=== PATIENT | female | born 1965 | race Caucasian/White ===

== ENCOUNTER 2020-03-18 05:58 | Inpatient (IN) | payer OTHER ==
[~2020-03-18 05:58] MED LIST: Lactated Ringers 1,000 ML IV SCH; Lidocaine 1%/Sod Bicarbonate in NS 8.4% 1 ML Syringe IDERM PRN; Sodium Chloride 0.9% 10 ML Syringe FLUSH PRN
[2020-03-18] MEDS ORDERED: oxyCODONE ER 10 MG TAB.ER PO SCH (06:00)
[2020-03-18] MEDS ORDERED: Acetaminophen 325 MG Tab PO SCH (06:00)
[2020-03-18] MEDS ORDERED: Pregabalin 25 MG Cap PO SCH (06:00)
[2020-03-18] MEDS ORDERED: Cyclobenzaprine 10 MG Tab PO PRN (06:32)
[2020-03-18] MEDS ORDERED: Bisacodyl 5 MG Tab PO PRN (06:33)
[2020-03-18] MEDS ORDERED: Sennosides 8.6 MG Tab PO PRN (06:33)
[2020-03-18] MEDS ORDERED: Magnesium Hydroxide 400 MG/5 ML Susp 30 ML Cup PO PRN (06:33)
[2020-03-18] MEDS ORDERED: Ondansetron 4 MG/2 ML SDV IVPUSH PRN (06:33)
[2020-03-18] MEDS ORDERED: Naloxone 0.4 MG/ML SDV IVPUSH PRN (06:33)
[2020-03-18] MEDS ORDERED: Scopolamine 1.5 MG Transdermal Patch TOP PRN (06:53)
--- NOTE | 2020-03-18 07:11 | PCM.PREANE ---
Preanesthetic Assessment - Anesthesia/Transfusion/Family Hx Anesthesia History: Prior Anesthesia Reaction Transfusion History: No Prior Transfusion(s) - Review of Systems General: No Symptoms Pulmonary: No Symptoms Cardiovascular: No Symptoms Gastrointestinal: No Symptoms Neurological: No Symptoms Other: Reports: Diabetes - Physical Assessment NPO Status Date: 03/17/20 NPO Status Time: 21:00 Vital Signs: Last Vital Signs Temp 97.0 F 03/18/20 06:00 Pulse 91 03/18/20 06:00 Resp 16 03/18/20 06:00 BP 126/49 L 03/18/20 06:00 Pulse Ox 97 03/18/20 06:00 Height: 1.63 m Weight: 126.099 kg ASA Class: 3 Mental Status: Alert & Oriented x3 Airway Class: Mallampati = 4 Dentition: Reports: [place](s), Missing Tooth/Teeth Thyro-Mental Finger Breadths: 3 Mouth Opening Finger Breadths: 3 ROM/Head Extension: Limited/Partial (short neck, large neck circumference and bull hump) Lungs: Clear to Auscultation, Normal Respiratory Effort Cardiovascular: Regular Rate, Regular Rhythm - Lab Values: Laboratory Last Values POC Glucose 96 mg/dL (70-105) 03/18/20 06:31 MRSA (PCR) Negative 03/06/20 17:08 - Allergies Allergies/Adverse Reactions: Allergies Allergy/AdvReac Type Severity Reaction Status Date / Time cephalexin monohydrate Allergy Severe Hot Verified 03/17/20 07:15 [From Keflex] burning red rash amoxicillin [Amoxicillin] Allergy Intermediate Burning Verified 03/17/20 07:15 red rash cetirizine Allergy Cannot Verified 03/17/20 07:15 Remember clarithromycin Allergy Hives Verified 03/17/20 07:15 codeine Allergy hives/rash/ Verified 03/17/20 07:15 itching morphine Allergy hives/rash/ Verified 03/17/20 07:15 itching strawberry Allergy Other Verified 03/18/20 06:41 Sulfa (Sulfonamide Allergy Hives Verified 03/17/20 07:15 Antibiotics) sulfamethoxazole Allergy hives/itchi Verified 03/17/20 07:15 [From Bactrim] ng trimethoprim Allergy Cannot Verified 03/17/20 07:15 Remember - Acknowledgements Anesthesia Type Planned: Spinal, Regional Block (adductor canal for postoperative pain control) Pt an Appropriate Candidate for the Planned Anesthesia: Yes Alternatives and Risks of Anesthesia Discussed w Pt/Guardian: Yes Pt/Guardian Understands and Agrees with Anesthesia Plan: Yes PreAnesthesia Questionnaire HEENT History: Reports: Allergic Rhinitis, Impaired Vision Cardiovascular History: Reports: High Cholesterol, Hypertension, [place], PVD, Other (See Below) Other Cardiovascular History: venous insufficiency Respiratory History: Reports: Asthma, Sleep Apnea, Other (See Below) Other Respiratory History: Patient uses a CPAP Gastrointestinal History: Reports: Cholelithiasis Genitourinary History: Reports: Renal Calculus, Other (See Below) Other Genitourinary History: History of bladder issues and has had a bladder lift in 1999, cystocele 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) Other OB/BYN History: vaginitis, ovarian cystectomy Musculoskeletal History: Reports: Arthritis, Back Pain, Chronic Neurological History: Reports: Neuropathy, Diabetic, Other (See Below) Other Neuro History: cerviclagia, seizures, neck surgery, spine surgery Psychiatric History: Reports: None Endocrine/Metabolic History: Reports: Diabetes, Type II, Obesity/BMI 30+ (Morbid Obesity) Hematologic History: Reports: None, Polycythemia Immunologic History: Reports: None Oncologic (Cancer) History: Reports: None Dermatologic History: Reports: Other (See Below) Other Dermatologic History: foot laceration - Infectious Disease History Infectious Disease History: Reports: None - Past Surgical History Head Surgeries/Procedures: Reports: None HEENT Surgical History: Reports: Naso-Sinus Surgery, Oral Surgery Cardiovascular Surgical History: Reports: Other (See Below) Other Cardiovascular Surgeries/Procedures: angioplasty Respiratory Surgical History: Reports: None GI Surgical History: Reports: Cholecystectomy, Colonoscopy Female Surgical History: Reports: Breast Biopsy, Section, Hysterectomy, Other (See Below) Other Female Surgeries/Procedures: Right ovarian cyst Endocrine Surgical History: Reports: None Neurological Surgical History: Reports: Other (See Below) Other Neurological Surgeries/Procedures: Neck surgery Musculoskeletal Surgical History: Reports: Arthroscopic Knee, Carpal Tunnel, Other (See Below) Other Musculoskeletal Surgeries/Procedures:: Right knee Oncologic Surgical History: Reports: None Dermatological Surgical History: Reports: None - SUBSTANCE USE Smoking Status *Q: Former Smoker Second Hand Smoke Exposure: No Recreational Drug Use History: No - HOME MEDS Home Medications: Home Meds Albuterol [Ventolin HFA] 2 puff INH Q4H PRN 05/05/14 [History] Furosemide 20 tab PO DAILY PRN 09/04/15 [History] Aspirin 81 mg PO DAILY 03/17/20 [History] Celecoxib 200 mg PO DAILY 03/17/20 [History] Cholecalciferol (Vitamin D3) [Vitamin D3] 5,000 unit PO DAILY 03/17/20 [History] Dapagliflozin Propanediol [Farxiga] 10 mg PO DAILY 03/17/20 [History] Dulaglutide [Trulicity] 0.5 ml SQ SA 03/17/20 [History] Losartan Potassium 12.5 mg PO DAILY 03/17/20 [History] Propylene Glycol/PEG 400/Pf [Systane 0.3-0.4% Eye Drop] 1 drop EYEBOTH Q4H PRN 03/17/20 [History] atorvaSTATin Calcium [Lipitor] 40 mg PO DAILY 03/17/20 [History] metFORMIN HCl [Metformin HCl] 1,000 mg PO BID 03/17/20 [History] - CURRENT (IN HOUSE) MEDS Current Meds: Current Medications Acetaminophen (Tylenol) 975 mg PO ONETIME [facility] Stop: 03/18/20 16:00 Last Admin: 03/18/20 06:14 Dose: 975 mg Documented by: Aspirin (Ecotrin) 325 mg PO BID SHANNON Bisacodyl (Dulcolax) 5 mg PO DAILY PRN PRN Reason: Constipation Morphine Sulfate 8 mg/Epinephrine HCl 0.3 mg/Cefuroxime Sodium 750 mg/Ketorolac Tromethamine 30 mg/Sodium Chloride 7.9 ml 0 mg .XX ASDIRECTED PRN PRN Reason: Pain Cyclobenzaprine HCl (Flexeril) 10 mg PO TID PRN PRN Reason: Spasms Docusate Sodium (Colace) 100 mg PO BID SHANNON Famotidine (Pepcid) 20 mg PO Q12H SHANNON Hydromorphone HCl (Dilaudid) 0.2 mg IVPUSH Q2H PRN PRN Reason: Pain (moderate 4-6) Lactated Ringer's (Ringers, Lactated) 1,000 mls @ 125 mls/hr IV ASDIRECTED SHANNON Stop: 03/18/20 23:00 Last Admin: 03/18/20 06:25 Dose: 125 mls/hr Documented by: Cefazolin Sodium/Dextrose 2 gm (/ Premix) 50 mls @ 100 mls/hr IV Q8H [facility] Stop: 03/18/20 23:14 Ketorolac Tromethamine (Toradol) 15 mg IVPUSH Q6H PRN PRN Reason: Pain Lidocaine/Sodium Bicarbonate (Buffered Lidocaine 1% In Ns 8.4%) 0.25 ml IDERM ONETIME PRN PRN Reason: Prior to IV Start Stop: 03/18/20 18:00 Last Admin: 03/18/20 06:25 Dose: 0.25 ml Documented by: Magnesium Hydroxide (Milk Of Magnesia) 30 ml PO BID PRN PRN Reason: Constipation Miscellaneous Information (Remove Patch) 1 ea TRDERM Q3D@0700 [facility] Naloxone HCl (Narcan) 0.1 mg IVPUSH Q5M PRN PRN Reason: Oversedation Ondansetron HCl (Zofran) 4 mg IVPUSH Q6H PRN PRN Reason: Nausea/Vomiting Oxycodone HCl (Oxycontin) 10 mg PO ONETIME [facility] Stop: 03/18/20 16:00 Last Admin: 03/18/20 06:14 Dose: 10 mg Documented by: Oxycodone/Acetaminophen (Percocet 325-5 Mg) 1 - 2 tab PO Q4H PRN PRN Reason: Pain Pregabalin (Lyrica) 50 mg PO ONETIME [facility] Stop: 03/18/20 16:00 Last Admin: 03/18/20 06:14 Dose: 50 mg Documented by: Scopolamine (Transderm-Scop) 1.5 mg TOP ONETIME PRN PRN Reason: Nausea/Vomiting Last Admin: 03/18/20 07:09 Dose: 1.5 mg Documented by: Senna (Senna) 8.6 mg PO BID PRN PRN Reason: Constipation Sodium Chloride (Saline Flush) 10 ml FLUSH ASDIRECTED PRN PRN Reason: Keep Vein Open Stop: 03/18/20 18:00 Discontinued Medications Bupivacaine HCl (Sensorcaine-Mpf 0.25%) Confirm Administered Dose 40 ml .ROUTE .STK-MED ONE Stop: 03/18/20 06:16 Cefazolin Sodium (Ancef) Confirm Administered Dose 2 gm .ROUTE .STK-MED ONE Stop: 03/18/20 06:16 Iodine (Iodine 2% Mild Tincture) Confirm Administered Dose 30 ml .ROUTE .STK-MED ONE Stop: 03/18/20 06:16 Tranexamic Acid (Cyklokapron) Confirm Administered Dose 1,000 mg .ROUTE .STK-MED ONE Stop: 03/18/20 06:15 Triamcinolone Acetonide (Kenalog-40) Confirm Administered Dose 80 mg .ROUTE .STK-MED ONE Stop: 03/18/20 06:15 Vancomycin HCl (Vancomycin) Confirm Administered Dose 1 gm .ROUTE .STK-MED ONE Stop: 03/18/20 06:16
[2020-03-18] MEDS ORDERED: Midazolam 1 MG/ML 2 ML SDV ONE (07:13)
[2020-03-18] MEDS ORDERED: ceFAZolin 1 GM Vial ONE (07:13)
[2020-03-18] MEDS: Iodine/Sodium Iodide 2% Tincture 30 ML Bottle ONE ×2 (07:13→08:30)
[2020-03-18] MEDS: ceFAZolin 1 GM Vial ONE ×2 (07:14→08:34)
[2020-03-18] MEDS ORDERED: Propofol 200 MG/20 ML SDV ONE (07:14)
[2020-03-18] MEDS: Bupivacaine 0.25% 10 ML SDV ONE ×4 (07:14→08:59)
[2020-03-18] MEDS: Vancomycin 1 GM SDV ONE ×2 (07:16→08:41)
[2020-03-18] MEDS ORDERED: Lidocaine 1% 4 ML ONE (07:40)
--- NOTE | 2020-03-18 07:41 | PCM.CONS ---
H&P History of Present Illness - General Date of Service: 03/18/20 Admit Problem/Dx: Admission Diagnosis/Problem Admission Diagnosis/Problem Osteoarthritis of knee - History of Present Illness Initial Comments - Free Text/Narative: This is a 54-year-old female with past medical history of diabetes, sleep apnea on CPAP, hypertension who was admitted to this facility for total knee replacement by orthopedic surgeon. - Related Data Allergies/Adverse Reactions: Allergies Allergy/AdvReac Type Severity Reaction Status Date / Time cephalexin monohydrate Allergy Severe Hot Verified 03/17/20 07:15 [From Keflex] burning red rash amoxicillin [Amoxicillin] Allergy Intermediate Burning Verified 03/17/20 07:15 red rash cetirizine Allergy Cannot Verified 03/17/20 07:15 Remember clarithromycin Allergy Hives Verified 03/17/20 07:15 codeine Allergy hives/rash/ Verified 03/17/20 07:15 itching morphine Allergy hives/rash/ Verified 03/17/20 07:15 itching Sulfa (Sulfonamide Allergy Hives Verified 03/17/20 07:15 Antibiotics) sulfamethoxazole Allergy hives/itchi Verified 03/17/20 07:15 [From Bactrim] ng trimethoprim Allergy Cannot Verified 03/17/20 07:15 Remember Home Medications: Home Meds Albuterol [Ventolin HFA] 2 puff INH Q4H PRN 12/25/13 [History] Furosemide 20 tab PO DAILY PRN 09/04/15 [History] Cholecalciferol (Vitamin D3) [Vitamin D3] 5,000 unit PO DAILY 03/17/20 [History] Dapagliflozin Propanediol [Farxiga] 10 mg PO DAILY 03/17/20 [History] Dulaglutide [Trulicity] 0.5 ml SQ SA 03/17/20 [History] Losartan Potassium 12.5 mg PO DAILY 03/17/20 [History] Propylene Glycol/PEG 400/Pf [Systane 0.3-0.4% Eye Drop] 1 drop EYEBOTH Q4H PRN 03/17/20 [History] atorvaSTATin Calcium [Lipitor] 40 mg PO DAILY 03/17/20 [History] metFORMIN HCl [Metformin HCl] 1,000 mg PO BID 03/17/20 [History] Acetaminophen/oxyCODONE [Percocet 325-5 MG] 1 - 2 tab PO Q4H PRN #60 tablet 03/19/20 [Rx] Aspirin [Ecotrin EC] 325 mg PO BID #84 tab.ec 03/19/20 [Rx] Cyclobenzaprine [Flexeril] 10 mg PO BID PRN #20 tablet 03/19/20 [Rx] Docusate Sodium [Colace] 100 mg PO BID cap 03/19/20 [Rx] Famotidine [Pepcid] 20 mg PO Q12H tablet 03/19/20 [Rx] Magnesium Hydroxide [Milk of Magnesia] 30 ml PO BID PRN cup 03/19/20 [Rx] Remove Patch 1 ea TRDERM Q3D@0700 each 03/19/20 [Rx] Sennosides [Senna] 8.6 mg PO BID PRN tablet 03/19/20 [Rx] bisacodyL [Dulcolax] 5 mg PO DAILY PRN tablet 03/19/20 [Rx] Past Medical History HEENT History: Reports: Allergic Rhinitis, Impaired Vision Cardiovascular History: Reports: High Cholesterol, Hypertension, [place], PVD, Other (See Below) Other Cardiovascular History: venous insufficiency Respiratory History: Reports: Asthma, Sleep Apnea, Other (See Below) Other Respiratory History: Patient uses a CPAP Gastrointestinal History: Reports: Cholelithiasis Genitourinary History: Reports: Renal Calculus, Other (See Below) Other Genitourinary History: History of bladder issues and has had a bladder lift in 1999, cystocele 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) Other OB/BYN History: vaginitis, ovarian cystectomy Musculoskeletal History: Reports: Arthritis, Back Pain, Chronic Neurological History: Reports: Neuropathy, Diabetic, Other (See Below) Other Neuro History: cerviclagia, seizures, neck surgery, spine surgery Psychiatric History: Reports: None Endocrine/Metabolic History: Reports: Diabetes, Type II, Obesity/BMI 30+ Hematologic History: Reports: None, Polycythemia Immunologic History: Reports: None Oncologic (Cancer) History: Reports: None Dermatologic History: Reports: Other (See Below) Other Dermatologic History: foot laceration - Infectious Disease History Infectious Disease History: Reports: None - Past Surgical History Head Surgeries/Procedures: Reports: None HEENT Surgical History: Reports: Naso-Sinus Surgery, Oral Surgery Cardiovascular Surgical History: Reports: Other (See Below) Other Cardiovascular Surgeries/Procedures: angioplasty Respiratory Surgical History: Reports: None GI Surgical History: Reports: Cholecystectomy, Colonoscopy Female Surgical History: Reports: Breast Biopsy, Section, Hysterectomy, Other (See Below) Other Female Surgeries/Procedures: Right ovarian cyst Endocrine Surgical History: Reports: None Neurological Surgical History: Reports: Other (See Below) Other Neurological Surgeries/Procedures: Neck surgery Musculoskeletal Surgical History: Reports: Arthroscopic Knee, Carpal Tunnel, Other (See Below) Other Musculoskeletal Surgeries/Procedures:: Right knee Oncologic Surgical History: Reports: None Dermatological Surgical History: Reports: None Social & Family History - Tobacco Use Smoking Status *Q: Former Smoker Used Tobacco, but Quit: Yes Month/Year Tobacco Last Used: 10/2019 Second Hand Smoke Exposure: No - Caffeine Use Caffeine Use: Reports: Coffee, Soda - Recreational Drug Use Recreational Drug Use: No H&P Review of Systems - Review of Systems: Review Of Systems: Comprehensive ROS is negative, except as noted in HPI. Exam - Exam Exam: See Below - Vital Signs Vital Signs: Last Vital Signs Temp 97.0 F 03/18/20 06:00 Pulse 91 03/18/20 06:00 Resp 16 03/18/20 06:00 BP 126/49 L 03/18/20 06:00 Pulse Ox 97 03/18/20 06:00 Weight: 126.099 kg - Exam Quality Assessment: Other (Confounded by body habitus). No: Supplemental Oxygen, Central Line/PICC, Urinary Catheter General: Alert, Oriented, Cooperative. No: Mild Distress HEENT: Conjunctiva Clear, EACs Clear, EOMI, Mucosa Moist & [place] Neck: Supple Lungs: Clear to Auscultation, Normal Respiratory Effort, Decreased Breath Sounds. No: Crackles, Rales, Rhonchi, Rub, Stridor, Other Cardiovascular: Regular Rate, Regular Rhythm. No: Systolic Murmur, Diastolic Murmur, Rubs, Gallop/S3, Gallop/S4 GI/Abdominal Exam: Normal Bowel Sounds, Soft, Non-Tender, Distended. No: Guarding, Rigid, Rebound Extremities: Normal Inspection, Normal Capillary Refill, Pedal Edema (Mild) Peripheral Pulses: 2+: Radial (L), Radial (R), Dorsalis Pedis (L), Dorsalis Pedis (R) Skin: Warm, Dry, Intact Neuro Extensive - Mental Status: Alert, Oriented x3, Normal Mood/Affect - Patient Data Result Diagrams: 03/19/20 05:08 03/19/20 05:08 Sepsis Event Note - Evaluation Sepsis Screening Result: No Definite Risk Consult PN Assessment/Plan POD#: 0 (1) Diabetes mellitus SNOMED Code(s): 12377257 Code(s): E11.9 - TYPE 2 DIABETES MELLITUS WITHOUT COMPLICATIONS (2) Hypertension SNOMED Code(s): 30429513 Code(s): I10 - ESSENTIAL (PRIMARY) HYPERTENSION (3) Smoker SNOMED Code(s): 02614660 Code(s): F17.200 - NICOTINE DEPENDENCE, UNSPECIFIED, UNCOMPLICATED (4) Obstructive sleep apnea on CPAP SNOMED Code(s): 46639500 Code(s): G47.33 - OBSTRUCTIVE SLEEP APNEA (ADULT) (PEDIATRIC); Z99.89 - DEPENDENCE ON OTHER ENABLING MACHINES AND DEVICES (5) Dyslipidemia SNOMED Code(s): 622080840 Code(s): E78.5 - HYPERLIPIDEMIA, UNSPECIFIED (6) Obesity, Class III, BMI 40-49.9 (morbid obesity) SNOMED Code(s): 873115674, 848789161, 08502508272450 Code(s): E66.01 - MORBID (SEVERE) OBESITY DUE TO EXCESS CALORIES (7) Peripheral venous insufficiency SNOMED Code(s): 42541135 Code(s): I87.2 - VENOUS INSUFFICIENCY (CHRONIC) (PERIPHERAL) (8) Osteoarthritis of right knee SNOMED Code(s): 935427267597336 Code(s): M17.11 - UNILATERAL PRIMARY OSTEOARTHRITIS, RIGHT KNEE (9) LAD stenosis SNOMED Code(s): 414979109 Code(s): I25.10 - ATHSCL HEART DISEASE OF [place] CORONARY ARTERY W/O ANG PCTRS Problem List Initiated/Reviewed/Updated: Yes Plan: ASSESSMENT Preoperative Stress Test with 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
[2020-03-18] MEDS ORDERED: Dexamethasone 4 MG/ML 5 ML MDV ONE (08:22)
[2020-03-18] MEDS: Triamcinolone Acetonide 40 MG/ML 1 ML MDV ONE ×2 (08:35→08:59)
[2020-03-18] MEDS: Morphine Sulfate 8 MG, EPINEPHrine 0.3 MG, Cefuroxime 750 MG, Ketorolac 30 MG, Sodium C... ONE ×15 (08:35→11:33)
--- NOTE | 2020-03-18 08:37 | PCM.PRNOTE ---
- Free Text/Narrative Note: Postoperative regional pain control requested by surgeon. Pre-op Dx: Rt knee osteoarthritis. Post-op Rx: Total Rt knee arthroplasty. Procedure: Rt Adductor canal block with U/S guidance Requesting physician: Dr. Monty Dey Risks and benefits discussed with the patient preoperatively including i nfection, bleeding, incomplete or failed block, possible nerve damage, local anesthetic toxicity. Permit signed. Patient after spinal anesthesia post surgery in PACU, stable and awake. Time out performed. Right mid-thigh was prepped with Chloraprep x 1 and allowed to dry. Under aseptic technique, the right femoral artery and sartorius muscle were identified under ultrasound prior to needle insertion. 4" Stimuplex needle #22 G was inserted under US guidance. Under direct visualization of needle tip the injection of 0.5% Ropivacaine with 1:200k epinephrine, with 6 mg of Dexamethasone total of 30 mls in divided doses, maintaining negative aspiration was completed without problems.. No local anesthetic toxicity was noted. Patient is awake, stable and tolerated the procedure well. Time: 09:25 - 09:39
[2020-03-18] MEDS ORDERED: diphenhydrAMINE 50 MG/ML SDV ONE (08:45)
[2020-03-18] MEDS ORDERED: Ropivacaine 0.5% 5 MG/ML 30 ML SDV ONE (09:15)
--- NOTE | 2020-03-18 09:49 | PCM.POSTAN ---
POST ANESTHESIA ASSESSMENT - MENTAL STATUS Mental Status: Somnolent - VITAL SIGNS Vital Signs: Last Vital Signs Temp 97.1 F 03/18/20 09:09 Pulse 91 03/18/20 06:00 Resp 13 03/18/20 09:09 BP 93/44 L 03/18/20 09:09 Pulse Ox 97 03/18/20 09:09 - RESPIRATORY Respiratory Status: Respiratory Rate WNL, Airway Patent, O2 Saturation Stable - CARDIOVASCULAR CV Status: Pulse Rate WNL, Blood Pressure Stable - GASTROINTESTINAL GI Status: No Symptoms - PAIN Pain Score: 0 (post SAB) - POST OP HYDRATION Hydration Status: Adequate & Stable
[2020-03-18] MEDS ORDERED: Lactated Ringers 1,000 ML ONE (11:10)
[2020-03-18] MEDS ORDERED: Non-Formulary Medication 1 Each (Albuterol 2 PUFF) INH PRN (12:21)
[2020-03-18] MEDS ORDERED: Carboxymethylcellulose Sodium 1% Ophth Gel 15 ML Bottle EYEBOTH PRN (12:31)
--- NOTE | 2020-03-18 12:35 | CR ---
Right knee: AP and lateral views of the right knee were obtained. Comparison: Prior knee study of 11/24/17. Knee prosthesis is seen. Components are aligned. Underlying bony structures are intact. No acute fracture or other abnormal is seen. Impression: 1. Satisfactory appearance of recently placed right knee prosthesis. Diagnostic code #2 This report was dictated in MDT
[2020-03-18] MEDS: Acetaminophen/oxyCODONE 325-5 MG Tab PO PRN ×2 (13:23→22:42)
[2020-03-18] MEDS: HYDROmorphone 0.5 MG/0.5 ML Syringe IVPUSH PRN ×2 (13:26→20:14)
[2020-03-18] MEDS ORDERED: Ketorolac 15 MG/ML SDV IVPUSH PRN (15:00)
[2020-03-18] MEDS: ceFAZolin 1 GM in Premix Bag 1 BAG IV SCH ×2 (16:15→22:43)
[2020-03-18] MEDS: ceFAZolin 2 GM in Premix Bag 1 BAG IV SCH ×2 (16:16→22:43)
[2020-03-18] MEDS: Docusate Sodium 100 MG Cap PO SCH (20:15)
[2020-03-18] MEDS: Famotidine 20 MG Tab PO SCH (20:15)
[2020-03-19] MEDS: Acetaminophen/oxyCODONE 325-5 MG Tab PO PRN ×2 (03:02→12:14)
[2020-03-19] MEDS: ceFAZolin 2 GM in Premix Bag 1 BAG IV SCH (06:29)
[2020-03-19] MEDS: ceFAZolin 1 GM in Premix Bag 1 BAG IV SCH (06:30)
--- NOTE | 2020-03-19 07:36 | PCM.SURGPN ---
- General Info Date of Service: 03/19/20 POD#: 1 Functional Status: Reports: Pain Controlled, Tolerating Diet, Ambulating, Urinating, Incentive Spirometry, Other (The pt states she is doing well. She reports she has walked 3 times in the halls.) - Review of Systems Gastrointestinal: Reports: Other (Hx nausea, 1 episode emesis yesterday and pt denies nausea today.) - Patient Data Vitals - Most Recent: Last Vital Signs Temp 98.1 F 03/19/20 03:12 Pulse 82 03/19/20 03:12 Resp 18 03/19/20 03:12 BP 121/48 L 03/19/20 03:12 Pulse Ox 93 L 03/19/20 06:33 Weight - Most Recent: 283 lb 11.2 oz I&O - Last 24 Hours: Intake & Output 03/18/20 03/19/20 03/19/20 22:59 06:59 14:59 Intake Total 940 350 Output Total 100 1950 Balance 840 -1600 Lab Results Last 24 Hrs: Laboratory Results - last 24 hr 03/19/20 03/19/20 Range/Units 05:08 05:08 WBC 16.55 H (3.98-10.04) K/mm3 RBC 4.75 (3.98-5.22) M/mm3 Hgb 12.8 (11.2-15.7) gm/dl Hct 40.3 (34.1-44.9) % MCV 84.8 (79.4-94.8) fl MCH 26.9 (25.6-32.2) pg MCHC 31.8 L (32.2-35.5) g/dl RDW Std Deviation 44.4 (36.4-46.3) fL Plt Count 265 (182-369) K/mm3 MPV 10.7 (9.4-12.3) fl Sodium 137 (136-145) mEq/L Potassium 4.6 (3.5-5.1) mEq/L Chloride 103 (98-107) mEq/L Carbon Dioxide 24 (21-32) mEq/L Anion Gap 14.6 (5-15) BUN 16 (7-18) mg/dL Creatinine 0.8 (0.55-1.02) mg/dL Est Cr Clr Drug Dosing 68.61 mL/min Estimated GFR (MDRD) > 60 (>60) mL/min BUN/Creatinine Ratio 20.0 H (14-18) Glucose 188 H (74-106) mg/dL Calcium 9.0 (8.5-10.1) mg/dL Total Bilirubin 0.6 (0.2-1.0) mg/dL AST 18 (15-37) U/L ALT 27 (14-59) U/L Alkaline Phosphatase 91 (46-116) U/L Total Protein 6.8 (6.4-8.2) g/dl Albumin 2.9 L (3.4-5.0) g/dl Globulin 3.9 gm/dL Albumin/Globulin Ratio 0.7 L (1-2) Med Orders - Current: Current Medications Artificial Tears (Refresh Liquigel 1%) 0 ml EYEBOTH Q4H PRN PRN Reason: EYE DRYNESS Aspirin (Ecotrin) 325 mg PO BID [facility] Bisacodyl (Dulcolax) 5 mg PO DAILY PRN PRN Reason: Constipation Cholecalciferol (Vitamin D3) 5,000 unit PO DAILY [facility] Cyclobenzaprine HCl (Flexeril) 10 mg PO TID PRN PRN Reason: Spasms Last Admin: 03/19/20 03:04 Dose: 10 mg Documented by: Docusate Sodium (Colace) 100 mg PO BID [facility] Last Admin: 03/18/20 20:15 Dose: 100 mg Documented by: Famotidine (Pepcid) 20 mg PO Q12H [facility] Last Admin: 03/18/20 20:15 Dose: 20 mg Documented by: Hydromorphone HCl (Dilaudid) 0.2 mg IVPUSH Q2H PRN PRN Reason: Pain (moderate 4-6) Last Admin: 03/18/20 20:14 Dose: 0.2 mg Documented by: Cefazolin Sodium/Dextrose 2 gm (/ Premix) 50 mls @ 100 mls/hr IV Q8H [facility] Stop: 03/19/20 07:59 Last Admin: 03/19/20 06:29 Dose: 100 mls/hr Documented by: Cefazolin Sodium/Dextrose 1 gm (/ Premix) 50 mls @ 100 mls/hr IV Q8H [facility] Stop: 03/19/20 07:59 Last Admin: 03/19/20 06:30 Dose: 100 mls/hr Documented by: Ketorolac Tromethamine (Toradol) 15 mg IVPUSH Q6H PRN PRN Reason: Pain Magnesium Hydroxide (Milk Of Magnesia) 30 ml PO BID PRN PRN Reason: Constipation Miscellaneous Information (Remove Patch) 1 ea TRDERM Q3D@0700 [facility] Naloxone HCl (Narcan) 0.1 mg IVPUSH Q5M PRN PRN Reason: Oversedation Non-Formulary Medication (Albuterol) 2 puff INH Q4H PRN PRN Reason: Shortness of Breath Ondansetron HCl (Zofran) 4 mg IVPUSH Q6H PRN PRN Reason: Nausea/Vomiting Last Admin: 03/18/20 11:07 Dose: 4 mg Documented by: Oxycodone/Acetaminophen (Percocet 325-5 Mg) 1 - 2 tab PO Q4H PRN PRN Reason: Pain Last Admin: 03/19/20 03:02 Dose: 2 tab Documented by: Rosuvastatin Calcium (Crestor) 10 mg PO DAILY [facility] Senna (Senna) 8.6 mg PO BID PRN PRN Reason: Constipation Discontinued Medications Acetaminophen (Tylenol) 975 mg PO ONETIME [facility] Stop: 03/18/20 16:00 Last Admin: 03/18/20 06:14 Dose: 975 mg Documented by: Bupivacaine HCl (Sensorcaine-Mpf 0.25%) Confirm Administered Dose 40 ml .ROUTE .STK-MED ONE Stop: 03/18/20 06:16 Last Admin: 03/18/20 08:59 Dose: 4 ml Documented by: Cefazolin Sodium (Ancef) Confirm Administered Dose 2 gm .ROUTE .STK-MED ONE Stop: 03/18/20 06:16 Last Admin: 03/18/20 08:34 Dose: 2 gm Documented by: Cefazolin Sodium (Ancef) Confirm Administered Dose 3 gm .ROUTE .STK-MED ONE Stop: 03/18/20 07:14 Morphine Sulfate 8 mg/Epinephrine HCl 0.3 mg/Cefuroxime Sodium 750 mg/Ketorolac Tromethamine 30 mg/Sodium Chloride 7.9 ml 0 mg .XX ONETIME ONE Stop: 03/18/20 07:31 Last Admin: 03/18/20 11:33 Dose: Not Given Documented by: Dexamethasone (Dexamethasone) Confirm Administered Dose 20 mg .ROUTE .STK-MED ONE Stop: 03/18/20 08:23 Diphenhydramine HCl (Benadryl) Confirm Administered Dose 50 mg .ROUTE .STK-MED ONE Stop: 03/18/20 08:46 Lactated Ringer's (Ringers, Lactated) 1,000 mls @ 125 mls/hr IV ASDIRECTED [facility] Stop: 03/18/20 23:00 Last Admin: 03/18/20 06:25 Dose: 125 mls/hr Documented by: Lidocaine HCl (Xylocaine-Mpf 1%) Confirm Administered Dose 4 mls @ as directed .ROUTE .STK-MED ONE Stop: 03/18/20 07:41 Lactated Ringer's (Ringers, Lactated) Confirm Administered Dose 1,000 mls @ as directed .ROUTE .ST-MED ONE Stop: 03/18/20 11:11 Iodine (Iodine 2% Mild Tincture) Confirm Administered Dose 30 ml .ROUTE .STK-MED ONE Stop: 03/18/20 06:16 Last Admin: 03/18/20 08:30 Dose: 30 ml Documented by: Lidocaine/Sodium Bicarbonate (Buffered Lidocaine 1% In Ns 8.4%) 0.25 ml IDERM ONETIME PRN PRN Reason: Prior to IV Start Stop: 03/18/20 18:00 Last Admin: 03/18/20 06:25 Dose: 0.25 ml Documented by: Losartan Potassium (Cozaar) 12.5 mg PO DAILY [facility] Midazolam HCl (Versed 1 Mg/Ml) Confirm Administered Dose 2 mg .ROUTE .ST-MED ONE Stop: 03/18/20 07:14 Miscellaneous Medication (Phenylephrine 1 Mg/10 Ml-Ns) Confirm Administered Dose 1 mg IV .STK-MED ONE Stop: 03/18/20 08:42 Oxycodone HCl (Oxycontin) 10 mg PO ONETIME [facility] Stop: 03/18/20 16:00 Last Admin: 03/18/20 06:14 Dose: 10 mg Documented by: Pregabalin (Lyrica) 50 mg PO ONETIME [facility] Stop: 03/18/20 16:00 Last Admin: 03/18/20 06:14 Dose: 50 mg Documented by: Propofol (Diprivan 20 Ml) Confirm Administered Dose 600 mg .ROUTE .STK-MED ONE Stop: 03/18/20 07:15 Ropivacaine (Naropin 0.5%) Confirm Administered Dose 30 ml .ROUTE .STK-MED ONE Stop: 03/18/20 09:16 Scopolamine (Transderm-Scop) 1.5 mg TOP ONETIME PRN PRN Reason: Nausea/Vomiting Last Admin: 03/18/20 07:09 Dose: 1.5 mg Documented by: Sodium Chloride (Saline Flush) 10 ml FLUSH ASDIRECTED PRN PRN Reason: Keep Vein Open Stop: 03/18/20 18:00 Tranexamic Acid (Cyklokapron) Confirm Administered Dose 1,000 mg .ROUTE .STK-MED ONE Stop: 03/18/20 06:15 Last Admin: 03/18/20 08:45 Dose: 1,000 mg Documented by: Triamcinolone Acetonide (Kenalog-40) Confirm Administered Dose 80 mg .ROUTE .STK-MED ONE Stop: 03/18/20 06:15 Last Admin: 03/18/20 08:59 Dose: 80 mg Documented by: Vancomycin HCl (Vancomycin) Confirm Administered Dose 1 gm .ROUTE .STK-MED ONE Stop: 03/18/20 06:16 Last Admin: 03/18/20 08:41 Dose: 1 gm Documented by: - Exam Wound/Incisions: Dressing Dry and Intact General: Alert, Cooperative, No Acute Distress Lungs: Normal Respiratory Effort Extremities: Other (NVS intact for BLE. Michael's negative.) Sepsis Event Note - Evaluation Sepsis Screening Result: No Definite Risk - Focused Exam Vital Signs: Vital Signs Temp Pulse Resp BP Pulse Ox Pulse Ox 03/19/20 06:33 93 L 03/19/20 03:12 98.1 F 77 18 121/48 L 93 L 03/18/20 23:40 98.6 F 87 18 120/56 L 90 L 03/18/20 20:27 99.1 F 83 18 119/56 L 94 L Date Exam was Performed: 03/19/20 Time Exam was Performed: 07:34 - Problem List Review Problem List Initiated/Reviewed/Updated: Yes - My Orders Last 24 Hours: Active Orders 24 hr Category Date Time Status Notify Provider Consults [RC] ASDIRECTED Care 03/18/20 06:36 Active RT BiPAP/CPAP [RC] ASDIRECTED Care 03/18/20 11:47 Active Ready for Discharge [RC] PER UNIT ROUTINE Care 03/19/20 07:33 Ordered [employer] Diet [DIET] Diet 03/18/20 Lunch Active Albuterol Med 03/18/20 12:21 Pending 2 puff INH Q4H PRN Aspirin [Ecotrin] Med 03/19/20 09:00 Active 325 mg PO BID Carboxymethylcellulose Sodium [Refresh Liquigel 1%] Med 03/18/20 12:31 Active 0 ml EYEBOTH Q4H PRN Cholecalciferol (Vitamin D3) [Vitamin D3] Med 03/19/20 09:00 Active 5,000 unit PO DAILY Docusate Sodium [Colace] Med 03/18/20 21:00 Active 100 mg PO BID Famotidine [Pepcid] Med 03/18/20 21:00 Active 20 mg PO Q12H Ketorolac [Toradol] Med 03/18/20 15:00 Active 15 mg IVPUSH Q6H PRN Remove Patch Med 03/21/20 07:00 Active 1 ea TRDERM Q3D@0700 Rosuvastatin [Crestor] Med 03/19/20 09:00 Active 10 mg PO DAILY Scopolamine [Transderm-Scop] Med 03/18/20 06:53 Active 1.5 mg TOP ONETIME PRN ceFAZolin [Ancef] 1 gm Med 03/18/20 15:30 Active Premix Bag 1 bag IV Q8H ceFAZolin [Ancef] 2 gm Med 03/18/20 15:30 Active Premix Bag 1 bag IV Q8H Antiembolic Hose [OM.PC] Per Unit Routine Oth 03/18/20 06:35 Ordered Medication Orders Artificial Tears (Refresh Liquigel 1%) 0 ml EYEBOTH Q4H PRN PRN Reason: EYE DRYNESS Aspirin (Ecotrin) 325 mg PO BID [facility] Bisacodyl (Dulcolax) 5 mg PO DAILY PRN PRN Reason: Constipation Cholecalciferol (Vitamin D3) 5,000 unit PO DAILY [facility] Cyclobenzaprine HCl (Flexeril) 10 mg PO TID PRN PRN Reason: Spasms Last Admin: 03/19/20 03:04 Dose: 10 mg Documented by: JESSICA Docusate Sodium (Colace) 100 mg PO BID [facility] Last Admin: 03/18/20 20:15 Dose: 100 mg Documented by: JESSICA Famotidine (Pepcid) 20 mg PO Q12H [facility] Last Admin: 03/18/20 20:15 Dose: 20 mg Documented by: JESSICA Hydromorphone HCl (Dilaudid) 0.2 mg IVPUSH Q2H PRN PRN Reason: Pain (moderate 4-6) Last Admin: 03/18/20 20:14 Dose: 0.2 mg Documented by: Admin: 03/18/20 13:26 Dose: 0.2 mg Documented by: HILARY Cefazolin Sodium/Dextrose 2 gm (/ Premix) 50 mls @ 100 mls/hr IV Q8H [facility] Stop: 03/19/20 07:59 Last Admin: 03/19/20 06:29 Dose: 100 mls/hr Documented by: Infusion: 03/18/20 23:13 Dose: 100 mls/hr Documented by: Admin: 03/18/20 22:43 Dose: 100 mls/hr Documented by: Infusion: 03/18/20 16:46 Dose: 100 mls/hr Documented by: Admin: 03/18/20 16:16 Dose: 100 mls/hr Documented by: TOD Cefazolin Sodium/Dextrose 1 gm (/ Premix) 50 mls @ 100 mls/hr IV Q8H [facility] Stop: 03/19/20 07:59 Last Admin: 03/19/20 06:30 Dose: 100 mls/hr Documented by: Infusion: 03/18/20 23:13 Dose: 100 mls/hr Documented by: Admin: 03/18/20 22:43 Dose: 100 mls/hr Documented by: Infusion: 03/18/20 16:45 Dose: 100 mls/hr Documented by: Admin: 03/18/20 16:15 Dose: 100 mls/hr Documented by: TOD Ketorolac Tromethamine (Toradol) 15 mg IVPUSH Q6H PRN PRN Reason: Pain Magnesium Hydroxide (Milk Of Magnesia) 30 ml PO BID PRN PRN Reason: Constipation Miscellaneous Information (Remove Patch) 1 ea TRDERM Q3D@0700 [facility] Naloxone HCl (Narcan) 0.1 mg IVPUSH Q5M PRN PRN Reason: Oversedation Non-Formulary Medication (Albuterol) 2 puff INH Q4H PRN PRN Reason: Shortness of Breath Ondansetron HCl (Zofran) 4 mg IVPUSH Q6H PRN PRN Reason: Nausea/Vomiting Last Admin: 03/18/20 11:07 Dose: 4 mg Documented by: PROEAMA Oxycodone/Acetaminophen (Percocet 325-5 Mg) 1 - 2 tab PO Q4H PRN PRN Reason: Pain Last Admin: 03/19/20 03:02 Dose: 2 tab Documented by: Admin: 03/18/20 22:42 Dose: 2 tab Documented by: Admin: 03/18/20 13:23 Dose: 2 tab Documented by: HILRAY Rosuvastatin Calcium (Crestor) 10 mg PO DAILY [facility] Senna (Senna) 8.6 mg PO BID PRN PRN Reason: Constipation - Assessment Assessment (Free Text/Narrative):: POD#1 - right TKA with left knee cortisone injection - Plan Plan (Free Text/Narrative):: 1. Hgb 12.8. 2. 325mg ASA PO BID, frequent mobility, TEDs. 3. Discharge to home today. The pt will have the assistance of her . 4. Outpatient therapy. The pt's case was discussed with Dr. Del Castillo.
--- NOTE | 2020-03-19 07:38 | PCM.DCSUM1 ---
Discharge Summary - Hospital Course Brief History: Tesha is a 54 yo female who underwent right TKA with left knee cortisone injection with Dr. Del Castillo on 03-18-2020. The procedure was completed under spinal anesthesia with MAC. A post-operative adductor canal block was provided. The pt tolerated the procedure well and was admitted to the Medical-Surgical Unit. The pt received Ancef criss-operatively. She participated in P.T. and O.T. and progressed well. She was allowed to WBAT and used a FWW for mobility. The pt's surgical wound was dressed with a Mepilex dressing and remained clean and dry. On POD#1, the pt was started on 325mg ASA BID for VTE prophylaxis. The pt used TEDs and SCDs also. On POD#1, the pt's hemoglobin was 12.8. Medical management was provided by the Hospitalist service and the pt's hospital course was remarkable for need for close monitoring of blood sugars and for post-op nausea and vomiting which was treated by the Hospitalist service and resolved. On POD#1, the pt was deemed appropriate for discharge to home with her . - Discharge Data Discharge Date: 03/19/20 Discharge Disposition: Home, Self-Care 01 Condition: Good - Referral to Home Health Primary Care Physician: Michoacano Lizarraga MD - Patient Summary/Data Consults: Consultations 03/18/20 06:32 OT Evaluation and Treatment [CONS] Routine PT Evaluation and Treatment [CONS] Routine 03/18/20 06:33 Consult to Physician [CONS] Routine - Patient Instructions Diet: Usual Diet as Tolerated Activity: Apply Ice, As Tolerated, Elevate Extremity, Full Weight Bearing Driving: Do Not Drive Showering/Bathing: May Shower Wound/Incision Care: Keep Operative Site/Wound Site Clean and Dry, Do NOT Change Dressing Notify Provider of: Fever, Increased Pain, Swelling and Redness, Drainage, Nausea and/or Vomiting Other/Special Instructions: Please get up and moving around EVERY HOUR while awake. This helps to prevent blood clots. Please use your walker and have help with mobility as needed. Take a short walk in your home every hour while awake. Please take 325mg aspirin twice daily. The aspirin is being used for blood clot prevention. Please do not miss a dose of the aspirin. You could use a medication like Pepcid or Tagamet and/or a medication like Nexium or Prilosec to protect your stomach while you are using aspirin. At home, please complete the exercises that you learned during the Hospital stay. Schedule for physical therapy. Use the pain medication as needed. The medication may cause drowsiness and constipation. Contact your primary care provider for instructions if you are constipated. You may use a stool softener like docusate sodium or Colace 100mg twice daily and/or a laxative like Miralax daily for constipation. Increase your water and fiber intake while you are using the pain medication. Discontinue use of the pain medication as soon as able. Please do not use other medications that may cause drowsiness (other pain medications, anxiety pills, cold medications, sleeping pills, etc) while using the prescription pain medication. Do not use alcohol while using the pain medication. You may use acetaminophen or Tylenol for pain management, however, please ensure you are not using over 4000 mg or 4 grams of acetaminophen per day from all sources. Your pain medication has 325mg of acetaminophen per tablet. At this time, please do not use ibuprofen (Motrin, Advil) or naproxen (Aleve) for pain management as you are using the aspirin. When the aspirin course is completed in 4 to 6 weeks, you could use ibuprofen or naproxen for pain management (if this is allowed by your primary care provider). Wear the MANJU hose during the day and you may remove these at night. Elevate the limb to decrease swelling. Place ice to the area often. Place a towel between your skin and the blue pad. Use the incentive spirometer often. Take deep breaths throughout the day. Please keep the dressing in place until follow-up. Notify the Clinic if the dressing becomes saturated. Increase your protein intake while you are healing. Please closely monitor your blood sugars and notify your primary care provider with abnormal values. Elevated blood sugars increases the risk of infection. Call the Clinic with questions or concerns - [phone] and leave a message for the nurse. - Discharge Plan *PRESCRIPTION DRUG MONITORING PROGRAM REVIEWED*: No *COPY OF PRESCRIPTION DRUG MONITORING REPORT IN PATIENT SHEILA: No Prescriptions/Med Rec: Aspirin [Ecotrin EC] 325 mg PO BID #84 tab.ec Cyclobenzaprine [Flexeril] 10 mg PO BID PRN #20 tablet PRN Reason: Spasms Acetaminophen/oxyCODONE [Percocet 325-5 MG] 1 - 2 tab PO Q4H PRN #60 tablet PRN Reason: Pain Home Medications: Home Meds Albuterol [Ventolin HFA] 2 puff INH Q4H PRN 12/25/13 [History] Furosemide 20 tab PO DAILY PRN 09/04/15 [History] Cholecalciferol (Vitamin D3) [Vitamin D3] 5,000 unit PO DAILY 03/17/20 [History] Dapagliflozin Propanediol [Farxiga] 10 mg PO DAILY 03/17/20 [History] Dulaglutide [Trulicity] 0.5 ml SQ SA 03/17/20 [History] Losartan Potassium 12.5 mg PO DAILY 03/17/20 [History] Propylene Glycol/PEG 400/Pf [Systane 0.3-0.4% Eye Drop] 1 drop EYEBOTH Q4H PRN 03/17/20 [History] atorvaSTATin Calcium [Lipitor] 40 mg PO DAILY 03/17/20 [History] metFORMIN HCl [Metformin HCl] 1,000 mg PO BID 03/17/20 [History] Acetaminophen/oxyCODONE [Percocet 325-5 MG] 1 - 2 tab PO Q4H PRN #60 tablet 03/19/20 [Rx] Aspirin [Ecotrin EC] 325 mg PO BID #84 tab.ec 03/19/20 [Rx] Cyclobenzaprine [Flexeril] 10 mg PO BID PRN #20 tablet 03/19/20 [Rx] Docusate Sodium [Colace] 100 mg PO BID cap 03/19/20 [Rx] Famotidine [Pepcid] 20 mg PO Q12H tablet 03/19/20 [Rx] Magnesium Hydroxide [Milk of Magnesia] 30 ml PO BID PRN cup 03/19/20 [Rx] Remove Patch 1 ea TRDERM Q3D@0700 each 03/19/20 [Rx] Sennosides [Senna] 8.6 mg PO BID PRN tablet 03/19/20 [Rx] bisacodyL [Dulcolax] 5 mg PO DAILY PRN tablet 03/19/20 [Rx] Patient Handouts: Total Knee Replacement, [id number] Referrals: Debbie Herring PA-C [Physician Investigator Fraud] - - Discharge Summary/Plan Comment DC Time >30 min.: No - Patient Data Vitals - Most Recent: Last Vital Signs Temp 98.1 F 03/19/20 03:12 Pulse 82 03/19/20 03:12 Resp 18 03/19/20 03:12 BP 121/48 L 03/19/20 03:12 Pulse Ox 93 L 03/19/20 06:33 Weight - Most Recent: 283 lb 11.2 oz I&O - Last 24 hours: Intake & Output 03/18/20 03/19/20 03/19/20 22:59 06:59 14:59 Intake Total 940 350 Output Total 100 1950 Balance 840 -1600 Lab Results - Last 24 hrs: Laboratory Results - last 24 hr 03/19/20 03/19/20 Range/Units 05:08 05:08 WBC 16.55 H (3.98-10.04) K/mm3 RBC 4.75 (3.98-5.22) M/mm3 Hgb 12.8 (11.2-15.7) gm/dl Hct 40.3 (34.1-44.9) % MCV 84.8 (79.4-94.8) fl MCH 26.9 (25.6-32.2) pg MCHC 31.8 L (32.2-35.5) g/dl RDW Std Deviation 44.4 (36.4-46.3) fL Plt Count 265 (182-369) K/mm3 MPV 10.7 (9.4-12.3) fl Sodium 137 (136-145) mEq/L Potassium 4.6 (3.5-5.1) mEq/L Chloride 103 (98-107) mEq/L Carbon Dioxide 24 (21-32) mEq/L Anion Gap 14.6 (5-15) BUN 16 (7-18) mg/dL Creatinine 0.8 (0.55-1.02) mg/dL Est Cr Clr Drug Dosing 68.61 mL/min Estimated GFR (MDRD) > 60 (>60) mL/min BUN/Creatinine Ratio 20.0 H (14-18) Glucose 188 H (74-106) mg/dL Calcium 9.0 (8.5-10.1) mg/dL Total Bilirubin 0.6 (0.2-1.0) mg/dL AST 18 (15-37) U/L ALT 27 (14-59) U/L Alkaline Phosphatase 91 (46-116) U/L Total Protein 6.8 (6.4-8.2) g/dl Albumin 2.9 L (3.4-5.0) g/dl Globulin 3.9 gm/dL Albumin/Globulin Ratio 0.7 L (1-2) Med Orders - Current: Current Medications Artificial Tears (Refresh Liquigel 1%) 0 ml EYEBOTH Q4H PRN PRN Reason: EYE DRYNESS Aspirin (Ecotrin) 325 mg PO BID [facility] Bisacodyl (Dulcolax) 5 mg PO DAILY PRN PRN Reason: Constipation Cholecalciferol (Vitamin D3) 5,000 unit PO DAILY [facility] Cyclobenzaprine HCl (Flexeril) 10 mg PO TID PRN PRN Reason: Spasms Last Admin: 03/19/20 03:04 Dose: 10 mg Documented by: Docusate Sodium (Colace) 100 mg PO BID [facility] Last Admin: 03/18/20 20:15 Dose: 100 mg Documented by: Famotidine (Pepcid) 20 mg PO Q12H [facility] Last Admin: 03/18/20 20:15 Dose: 20 mg Documented by: Hydromorphone HCl (Dilaudid) 0.2 mg IVPUSH Q2H PRN PRN Reason: Pain (moderate 4-6) Last Admin: 03/18/20 20:14 Dose: 0.2 mg Documented by: Cefazolin Sodium/Dextrose 2 gm (/ Premix) 50 mls @ 100 mls/hr IV Q8H [facility] Stop: 03/19/20 07:59 Last Admin: 03/19/20 06:29 Dose: 100 mls/hr Documented by: Cefazolin Sodium/Dextrose 1 gm (/ Premix) 50 mls @ 100 mls/hr IV Q8H [facility] Stop: 03/19/20 07:59 Last Admin: 03/19/20 06:30 Dose: 100 mls/hr Documented by: Ketorolac Tromethamine (Toradol) 15 mg IVPUSH Q6H PRN PRN Reason: Pain Magnesium Hydroxide (Milk Of Magnesia) 30 ml PO BID PRN PRN Reason: Constipation Miscellaneous Information (Remove Patch) 1 ea TRDERM ONETIME ONE Stop: 03/21/20 07:01 Naloxone HCl (Narcan) 0.1 mg IVPUSH Q5M PRN PRN Reason: Oversedation Non-Formulary Medication (Albuterol) 2 puff INH Q4H PRN PRN Reason: Shortness of Breath Ondansetron HCl (Zofran) 4 mg IVPUSH Q6H PRN PRN Reason: Nausea/Vomiting Last Admin: 03/18/20 11:07 Dose: 4 mg Documented by: Oxycodone/Acetaminophen (Percocet 325-5 Mg) 1 - 2 tab PO Q4H PRN PRN Reason: Pain Last Admin: 03/19/20 03:02 Dose: 2 tab Documented by: Rosuvastatin Calcium (Crestor) 10 mg PO DAILY [facility] Senna (Senna) 8.6 mg PO BID PRN PRN Reason: Constipation Discontinued Medications Acetaminophen (Tylenol) 975 mg PO ONETIME [facility] Stop: 03/18/20 16:00 Last Admin: 03/18/20 06:14 Dose: 975 mg Documented by: Bupivacaine HCl (Sensorcaine-Mpf 0.25%) Confirm Administered Dose 40 ml .ROUTE .STK-MED ONE Stop: 03/18/20 06:16 Last Admin: 03/18/20 08:59 Dose: 4 ml Documented by: Cefazolin Sodium (Ancef) Confirm Administered Dose 2 gm .ROUTE .STK-MED ONE Stop: 03/18/20 06:16 Last Admin: 03/18/20 08:34 Dose: 2 gm Documented by: Cefazolin Sodium (Ancef) Confirm Administered Dose 3 gm .ROUTE .STK-MED ONE Stop: 03/18/20 07:14 Morphine Sulfate 8 mg/Epinephrine HCl 0.3 mg/Cefuroxime Sodium 750 mg/Ketorolac Tromethamine 30 mg/Sodium Chloride 7.9 ml 0 mg .XX ONETIME ONE Stop: 03/18/20 07:31 Last Admin: 03/18/20 11:33 Dose: Not Given Documented by: Dexamethasone (Dexamethasone) Confirm Administered Dose 20 mg .ROUTE .STK-MED ONE Stop: 03/18/20 08:23 Diphenhydramine HCl (Benadryl) Confirm Administered Dose 50 mg .ROUTE .STK-MED ONE Stop: 03/18/20 08:46 Lactated Ringer's (Ringers, Lactated) 1,000 mls @ 125 mls/hr IV ASDIRECTED [facility] Stop: 03/18/20 23:00 Last Admin: 03/18/20 06:25 Dose: 125 mls/hr Documented by: Lidocaine HCl (Xylocaine-Mpf 1%) Confirm Administered Dose 4 mls @ as directed .ROUTE .STK-MED ONE Stop: 03/18/20 07:41 Lactated Ringer's (Ringers, Lactated) Confirm Administered Dose 1,000 mls @ as directed .ROUTE .STK-MED ONE Stop: 03/18/20 11:11 Iodine (Iodine 2% Mild Tincture) Confirm Administered Dose 30 ml .ROUTE .STK-MED ONE Stop: 03/18/20 06:16 Last Admin: 03/18/20 08:30 Dose: 30 ml Documented by: Lidocaine/Sodium Bicarbonate (Buffered Lidocaine 1% In Ns 8.4%) 0.25 ml IDERM ONETIME PRN PRN Reason: Prior to IV Start Stop: 03/18/20 18:00 Last Admin: 03/18/20 06:25 Dose: 0.25 ml Documented by: Losartan Potassium (Cozaar) 12.5 mg PO DAILY [facility] Midazolam HCl (Versed 1 Mg/Ml) Confirm Administered Dose 2 mg .ROUTE .STK-MED ONE Stop: 03/18/20 07:14 Miscellaneous Medication (Phenylephrine 1 Mg/10 Ml-Ns) Confirm Administered Dose 1 mg IV .STK-MED ONE Stop: 03/18/20 08:42 Oxycodone HCl (Oxycontin) 10 mg PO ONETIME [facility] Stop: 03/18/20 16:00 Last Admin: 03/18/20 06:14 Dose: 10 mg Documented by: Pregabalin (Lyrica) 50 mg PO ONETIME [facility] Stop: 03/18/20 16:00 Last Admin: 03/18/20 06:14 Dose: 50 mg Documented by: Propofol (Diprivan 20 Ml) Confirm Administered Dose 600 mg .ROUTE .STK-MED ONE Stop: 03/18/20 07:15 Ropivacaine (Naropin 0.5%) Confirm Administered Dose 30 ml .ROUTE .STK-MED ONE Stop: 03/18/20 09:16 Scopolamine (Transderm-Scop) 1.5 mg TOP ONETIME PRN PRN Reason: Nausea/Vomiting Last Admin: 03/18/20 07:09 Dose: 1.5 mg Documented by: Sodium Chloride (Saline Flush) 10 ml FLUSH ASDIRECTED PRN PRN Reason: Keep Vein Open Stop: 03/18/20 18:00 Tranexamic Acid (Cyklokapron) Confirm Administered Dose 1,000 mg .ROUTE .STK-MED ONE Stop: 03/18/20 06:15 Last Admin: 03/18/20 08:45 Dose: 1,000 mg Documented by: Triamcinolone Acetonide (Kenalog-40) Confirm Administered Dose 80 mg .ROUTE .STK-MED ONE Stop: 03/18/20 06:15 Last Admin: 03/18/20 08:59 Dose: 80 mg Documented by: Vancomycin HCl (Vancomycin) Confirm Administered Dose 1 gm .ROUTE .STK-MED ONE Stop: 03/18/20 06:16 Last Admin: 03/18/20 08:41 Dose: 1 gm Documented by:
--- NOTE | 2020-03-19 07:54 | PCM48HPAN ---
Post Anesthesia Note - EVALUATION WITHIN 48HRS OF ANESTHETIC Vital Signs in Normal Range: Yes Patient Participated in Evaluation: Yes Respiratory Function Stable: Yes Airway Patent: Yes Cardiovascular Function Stable: Yes Hydration Status Stable: Yes Pain Control Satisfactory: Yes Nausea and Vomiting Control Satisfactory: Yes Mental Status Recovered: Yes Vital Signs: Last Vital Signs Temp 36.7 C 03/19/20 03:12 Pulse 82 03/19/20 03:12 Resp 18 03/19/20 03:12 BP 121/48 L 03/19/20 03:12 Pulse Ox 93 L 03/19/20 06:33
[2020-03-19] MEDS ORDERED: Rosuvastatin 10 MG Tab PO SCH (09:00)
[2020-03-19] MEDS ORDERED: Aspirin 325 MG Tab.EC PO SCH (09:00)
[2020-03-19] MEDS ORDERED: Losartan 25 MG Tab PO SCH (09:00)
[2020-03-19] MEDS ORDERED: Cholecalciferol (Vitamin D3) 5,000 UNIT Tab PO SCH (09:00)
[2020-03-19] MEDS: Famotidine 20 MG Tab PO SCH (09:35)
[2020-03-19] MEDS: Docusate Sodium 100 MG Cap PO SCH (09:36)
[2020-03-19 11:15] VITALS: BP 120/54; PULSE 79
--- NOTE | 2020-03-19 12:20 | PCM.CONSN ---
- General Info Date of Service: 03/19/20 Admission Dx/Problem (Free Text): Slept OK Tolerating diet Pain controlled No complaints - Patient Data Vitals - Most Recent: Last Vital Signs Temp 98.1 F 03/19/20 11:04 Pulse 79 03/19/20 11:04 Resp 16 03/19/20 11:04 BP 120/54 L 03/19/20 11:04 Pulse Ox 93 L 03/19/20 11:04 Weight - Most Recent: 128.684 kg - Exam General: Alert, Oriented, Cooperative, No Acute Distress HEENT: Pupils Equal, Pupils Reactive, EOMI, Mucous Membr. Moist/[place] Neck: Supple, Trachea Midline. No: Lymphadenopathy Lungs: Clear to Auscultation, Normal Respiratory Effort. No: Crackles, Rales, Rhonchi, Rub, Stridor, Wheezing Cardiovascular: Regular Rate, Regular Rhythm. No: Gallops, Rubs GI/Abdominal Exam: Normal Bowel Sounds, Soft, Non-Tender. No: Distended, Guarding, Rigid Extremities: Normal Capillary Refill, Pedal Edema (mild ) Peripheral Pulses: 2+: Radial (L), Radial (R), Dorsalis Pedis (L), Dorsalis Pedis (R) Skin: Warm, Dry, Intact Neurological: No New Focal Deficit Psy/Mental Status: Normal Affect, Normal Mood Sepsis Event Note - Evaluation Sepsis Screening Result: No Definite Risk Consult PN Assessment/Plan POD#: 1 (1) S/P total knee arthroplasty SNOMED Code(s): 7342860749001, 311217953, 9746044826448 Code(s): Z96.659 - PRESENCE OF UNSPECIFIED ARTIFICIAL KNEE JOINT (2) Diabetes mellitus SNOMED Code(s): 65325957 Code(s): E11.9 - TYPE 2 DIABETES MELLITUS WITHOUT COMPLICATIONS (3) Dyslipidemia SNOMED Code(s): 158364805 Code(s): E78.5 - HYPERLIPIDEMIA, UNSPECIFIED (4) Hypertension SNOMED Code(s): 15638721 Code(s): I10 - ESSENTIAL (PRIMARY) HYPERTENSION (5) LAD stenosis SNOMED Code(s): 765900389 Code(s): I25.10 - ATHSCL HEART DISEASE OF [place] CORONARY ARTERY W/O ANG PCTRS (6) Obesity, Class III, BMI 40-49.9 (morbid obesity) SNOMED Code(s): 797225246, 024014699, 83087657287024 Code(s): E66.01 - MORBID (SEVERE) OBESITY DUE TO EXCESS CALORIES (7) Obstructive sleep apnea on CPAP SNOMED Code(s): 41869482 Code(s): G47.33 - OBSTRUCTIVE SLEEP APNEA (ADULT) (PEDIATRIC); Z99.89 - DEPENDENCE ON OTHER ENABLING MACHINES AND DEVICES (8) Osteoarthritis of right knee SNOMED Code(s): 792242258179087 Code(s): M17.11 - UNILATERAL PRIMARY OSTEOARTHRITIS, RIGHT KNEE (9) Peripheral venous insufficiency SNOMED Code(s): 18043581 Code(s): I87.2 - VENOUS INSUFFICIENCY (CHRONIC) (PERIPHERAL) (10) Smoker SNOMED Code(s): 59361269 Code(s): F17.200 - NICOTINE DEPENDENCE, UNSPECIFIED, UNCOMPLICATED Problem List Initiated/Reviewed/Updated: Yes Plan: ASSESSMENT - Tolerating diet - Slept well with CPAP - Pain controlled - VS within normal limits - No post-operative complications - Using IS PLAN - Pain control and DVT as per primary team - Continue home medications - Continue IS - Discharge as per primary team
--- NOTE | 2020-03-21 08:09 | PCM.OPNOTE ---
- General Post-Op/Procedure Note Date of Surgery/Procedure: 03/18/20 Operative Procedure(s): right total knee arthroplasty with left knee corticosteroid injection Pre Op Diagnosis: bilateral knee osteoarthrosis Post-Op Diagnosis: Same Anesthesia Technique: Local, MAC, Spinal Primary Surgeon: Monty Del Castillo Anesthesia Provider: Marcos Rincon Gear Cutting Machine Operator: Debbie Herring Gear Cutting Machine Operator: Lizzy To EBL in mLs: 500 Complications: None Condition: Good Free Text/Narrative:: 4 3 9mm 29x9
--- NOTE | 2020-03-21 08:46 | OR ---
DATE OF OPERATION: 03/18/2020 SURGEON: Monty Del Castillo MD OPERATION PERFORMED: Right total knee arthroplasty with left knee corticosteroid injection. PREOPERATIVE DIAGNOSIS: Bilateral knee osteoarthrosis. POSTOPERATIVE DIAGNOSIS: Bilateral knee osteoarthrosis. ANESTHESIA: Local MAC with spinal. ANESTHESIA PROVIDER: Tierra Wheat. ASSISTANTS: Debbie Herring PA-C; and Lizzy To LPN. ESTIMATED BLOOD LOSS: 500 mL. COMPLICATIONS: None. CONDITION: Stable. IMPLANTS: 1. [place] size 4 press-fit CR femur. 2. [place] size 3 press-fit tibial base plate. 3. [place] size 3 9 mm CS polyethylene insert. 4. [place] size 29 x 9 mm press-fit asymmetric patella. DESCRIPTION OF PROCEDURE: The patient was identified in the preop holding area. Proper site was marked and identified by the surgeon. The patient was taken back to the operating theater. After adequate anesthesia, the patient's right lower extremity had a nonsterile tourniquet applied and it was sterilely prepped and draped in the usual sterile fashion. OR time-out was performed. The patient received 2 g IV Ancef. At this time, the right lower extremity was exsanguinated. Tourniquet was insufflated to 300 mmHg. Standard medial parapatellar incision was made. Medial parapatellar arthrotomy was created. Deep fibers of the MCL were raised and anterior fat pad was resected. At this time, attention was turned to the patella. Patella measured a 21, it was resected to a 13 for a 29 x 9 mm patella. Drill holes were then drilled and found to be in adequate position. The drill was then drilled in the distal femur and the intramedullary distal femoral cutting guide was then placed. 8 mm was resected off the distal femur and was found to be an adequate resection. Sizing guide was placed. It was found to be a size 4 press-fit CR femur that was shown on the implant record at the beginning of this dictation. The drill holes were drilled for the epicondylar axis using [place] line and epicondyles as reference. At this time, the 4-in-1 cutting block was placed. An anterior posterior and anterior and posterior chamfer cuts were then completed. Attention was turned to the tibia. The posterior medial lateral retractors were placed. The extramedullary tibial guide was placed. It was placed in the old footprint of the ACL. It was aligned with the center of the ankle and 0 degrees of slope, 9 mm was then resected off the unaffected side. There was found to be an acceptable reduction. At this time, posterior osteophytes were removed along with medial and lateral meniscus. A trial implant was placed with a correct sized tibia that was mentioned at the beginning of the dictation. A [place] size 3 9 mm CS polyethylene insert was then placed. The patient's knee was brought through range of motion. The patella was tracking centrally and was stable to varus and valgus stress. Alignment was found to be roughly at 0 degrees. The tibia was stamped and drilled in proper rotation. The universal tibial base plate was impacted in place. Next, the [place] size 4 press-fit CR femur impacted into place and the [place] size 3 9 mm CS polyethylene insert was placed. The patient's knee was brought into full extension. The patella was then press-fit in place at this time. Tourniquet was deflated. One liter dilute Betadine solution was irrigated through the knee along with 3 L of pulse lavage irrigation with Ancef. Periarticular injection was then completed. The patient's knee was brought through a range of motion. Once the cement had time to set up and it was found to be stable to varus valgus stress, the patella was tracking centrally with full range of motion. At this time, a #2 barbed suture was used for closure of the medial parapatellar arthrotomy. Topical tranexamic acid was placed. 2-0 Vicryl was used subcutaneously, Prineo was used for the skin. The patient tolerated the procedure well and was sent to the PACU in stable condition. After this was completed, under sterile technique, 2 mL of 40 mg Kenalog, 4 mL of 0.25% Marcaine were injected to the left knee. The patient tolerated all procedures well. MARCELL /[id number]
== END 2020-03-19 12:30 | disposition home or self-care (01) | DRG 470 ==
LOC: JD.SDS 05:58 → JD.MS 05:59 → JD.SDS 06:32 → JD.MS 06:33
PROVIDERS: ADMIT Orthopaedic Surgery; ATTEND Orthopaedic Surgery
PROC: 0SRC0JA Replacement of Right Knee Joint with Synthetic Substitute, Uncemented, Open Approach (ICD-10-PCS; principal; 2020-03-18)
PROC: 3E0U33Z Introduction of Anti-inflammatory into Joints, Percutaneous Approach (ICD-10-PCS; 2020-03-18)
DX: M17.0 Bilateral primary osteoarthritis of knee (principal); Z68.42 Body mass index [BMI] 45.0-49.9, adult; H54.7 Unspecified visual loss; E78.00 Pure hypercholesterolemia, unspecified; I10 Essential (primary) hypertension; G47.30 Sleep apnea, unspecified; G89.29 Other chronic pain; M19.90 Unspecified osteoarthritis, unspecified site; M54.9 Dorsalgia, unspecified; E11.42 Type 2 diabetes mellitus with diabetic polyneuropathy; E66.9 Obesity, unspecified; Z90.710 Acquired absence of both cervix and uterus; Z90.49 Acquired absence of other specified parts of digestive tract; Z88.1 Allergy status to other antibiotic agents; I25.2 Old myocardial infarction; Z88.8 Allergy status to other drugs, medicaments and biological substances; Z99.81 Dependence on supplemental oxygen; Z87.442 Personal history of urinary calculi; Z88.2 Allergy status to sulfonamides; Z87.891 Personal history of nicotine dependence
CPT/HCPCS: 01402; 36415; 64450; 73560-26-RT; 73560-RT; 80053; 82962; 85027; 87641; 97110-GP; 97116-GP; 97162-GP; 97165-GO; 97535-GO; 99221; 99231; A9270-GY; C1776; J0171; J0690; J0697; J1100; J1170; J1200; J1885; J2001; J2250; J2270; J2370; J2405; J2704; J2795; J3301; J3370; J3490; J7120

== ENCOUNTER 2022-06-18 06:29 | Day surgery (SDC) | payer OTHER ==
[~2022-06-18 06:29] MED LIST changes: +Sodium Chloride 0.9% 10 ML Syringe FLUSH SCH
[2022-06-18] MEDS ORDERED: Clindamycin Phosphate in D5W 900 MG in Premix Bag 1 BAG IV ONE ×2 (07:00)
[2022-06-18] MEDS ORDERED: Bupivacaine 0.25% 10 ML SDV ONE (07:21)
[2022-06-18] MEDS ORDERED: Lidocaine 1% 10 ML MDV ONE (07:21)
[2022-06-18] MEDS ORDERED: Propofol 200 MG/20 ML SDV ONE (07:40)
[2022-06-18] MEDS ORDERED: Midazolam 1 MG/ML 2 ML SDV ONE (07:41)
[2022-06-18] MEDS ORDERED: fentaNYL 100 MCG/2 ML SDV ONE (07:41)
[2022-06-18] MEDS ORDERED: Lidocaine 1% 2 ML ONE ×2 (07:42)
[2022-06-18] MEDS ORDERED: Acetaminophen/HYDROcodone 325-5 MG Tab PO PRN (07:46)
[2022-06-18] MEDS ORDERED: Ondansetron 4 MG/2 ML SDV ONE (08:27)
[2022-06-18 12:48] VITALS: BP 108/64; PULSE 83
== END 2022-06-18 09:47 | disposition home or self-care (01) ==
LOC: JD.SDS 06:29
PROVIDERS: ATTEND Orthopaedic Surgery
DX: M65.332 Trigger finger, left middle finger (principal); M65.842 Other synovitis and tenosynovitis, left hand; I10 Essential (primary) hypertension; E11.40 Type 2 diabetes mellitus with diabetic neuropathy, unspecified; J45.909 Unspecified asthma, uncomplicated; G47.30 Sleep apnea, unspecified; M19.90 Unspecified osteoarthritis, unspecified site; E66.9 Obesity, unspecified; D75.1 Secondary polycythemia; E78.00 Pure hypercholesterolemia, unspecified; Z79.899 Other long term (current) drug therapy; Z79.84 Long term (current) use of oral hypoglycemic drugs; Z88.1 Allergy status to other antibiotic agents; Z88.5 Allergy status to narcotic agent; Z88.6 Allergy status to analgesic agent; Z88.2 Allergy status to sulfonamides; Z98.890 Other specified postprocedural states; Z90.710 Acquired absence of both cervix and uterus; Z87.891 Personal history of nicotine dependence; Z79.82 Long term (current) use of aspirin; Z68.42 Body mass index [BMI] 45.0-49.9, adult; Z91.040 Latex allergy status
CPT/HCPCS: 26055; 82947; J2250; J2405; J2704; J3010; J3490; J7120; 01810

== ENCOUNTER 2023-07-22 05:55 | Day surgery (SDC) | payer BC, OTHER ==
[~2023-07-22 05:55] MED LIST changes: -Lidocaine 1%/Sod Bicarbonate in NS 8.4% 1 ML Syringe IDERM PRN
[2023-07-22] MEDS ORDERED: Lidocaine 1% 10 ML MDV ONE (06:10)
[2023-07-22] MEDS ORDERED: Bupivacaine 0.25% 10 ML SDV ONE (06:10)
[2023-07-22] MEDS ORDERED: Lidocaine 2% 5 ML SDV ONE ×2 (06:30→06:31)
[2023-07-22] MEDS ORDERED: Propofol 200 MG/20 ML SDV ONE (06:31)
[2023-07-22] MEDS ORDERED: ceFAZolin 2 GM Vial ONE (06:33)
[2023-07-22] MEDS ORDERED: Triamcinolone Acetonide 40 MG/ML 1 ML SDV ONE (06:37)
[2023-07-22] MEDS: Bupivacaine 0.25% 10 ML SDV ONE ×2 (07:02→07:15)
[2023-07-22 08:32] VITALS: BP 140/74; PULSE 70
== END 2023-07-22 08:08 | disposition home or self-care (01) ==
LOC: JD.SDS 05:55
PROVIDERS: ATTEND Orthopaedic Surgery
DX: M65.9 Synovitis and tenosynovitis, unspecified (principal); I10 Essential (primary) hypertension; E11.51 Type 2 diabetes mellitus with diabetic peripheral angiopathy without gangrene; E11.40 Type 2 diabetes mellitus with diabetic neuropathy, unspecified; J45.20 Mild intermittent asthma, uncomplicated; G47.33 Obstructive sleep apnea (adult) (pediatric); E78.00 Pure hypercholesterolemia, unspecified; F17.210 Nicotine dependence, cigarettes, uncomplicated; Z79.82 Long term (current) use of aspirin; Z79.84 Long term (current) use of oral hypoglycemic drugs; Z79.899 Other long term (current) drug therapy
CPT/HCPCS: 20550; 26055; J0690; J2704; J3301; J3490; J7120; 01810

== ENCOUNTER 2024-10-16 07:15 | Day surgery (SDC) | payer BC ==
[~2024-10-16 07:15] MED LIST changes: -Lactated Ringers 1,000 ML IV SCH; +Lidocaine 1% 10 ML MDV ONE; +Midazolam 1 MG/ML 2 ML SDV ONE; +Propofol 200 MG/20 ML SDV ONE; +fentaNYL 100 MCG/2 ML SDV ONE
[2024-10-16] MEDS: Lactated Ringers 1,000 ML IV SCH (07:30)
[2024-10-16] MEDS: Clindamycin Phosphate in D5W 900 MG in Premix Bag 1 BAG IV ONE (07:52)
[2024-10-16] MEDS ORDERED: Lidocaine 1% 4 ML ONE (08:09)
[2024-10-16] MEDS: Bupivacaine 0.25% 10 ML SDV ONE (08:29)
[2024-10-16] MEDS: Lidocaine 1% 50 ML MDV INJECT ONE (08:29)
[2024-10-16 10:14] VITALS: BP 115/58; PULSE 75
== END 2024-10-16 10:05 | disposition home or self-care (01) ==
LOC: JD.SDS 07:15
PROVIDERS: ATTEND Orthopaedic Surgery
DX: G56.01 Carpal tunnel syndrome, right upper limb (principal); M65.331 Trigger finger, right middle finger; M65.341 Trigger finger, right ring finger; E11.9 Type 2 diabetes mellitus without complications; I10 Essential (primary) hypertension; E66.01 Morbid (severe) obesity due to excess calories; F17.210 Nicotine dependence, cigarettes, uncomplicated; Z79.899 Other long term (current) drug therapy; Z79.84 Long term (current) use of oral hypoglycemic drugs; Z79.82 Long term (current) use of aspirin; Z88.8 Allergy status to other drugs, medicaments and biological substances; Z68.42 Body mass index [BMI] 45.0-49.9, adult; Z88.5 Allergy status to narcotic agent; Z88.1 Allergy status to other antibiotic agents; Z91.040 Latex allergy status; Z88.2 Allergy status to sulfonamides
CPT/HCPCS: 01810; J0665; J0736; J2003; J2250; J2704; J3010; J7120

== ENCOUNTER 2025-04-26 07:00 | Day surgery (SDC) | payer BC ==
[~2025-04-26 07:00] MED LIST changes: +Lactated Ringers 1,000 ML IV SCH; -Lidocaine 1% 10 ML MDV ONE; -Midazolam 1 MG/ML 2 ML SDV ONE; -Propofol 200 MG/20 ML SDV ONE; -fentaNYL 100 MCG/2 ML SDV ONE
[2025-04-26] MEDS: Lactated Ringers 1,000 ML IV SCH (07:30)
[2025-04-26] MEDS ORDERED: propofoL 500 MG/50 ML 50 ML ONE (07:36)
[2025-04-26] MEDS ORDERED: Labetalol 100 MG/20 ML MDV ONE (08:51)
[2025-04-26 10:14] VITALS: BP 110/68; PULSE 85
== END 2025-04-26 10:02 | disposition home or self-care (01) ==
LOC: JD.SDS 07:00
PROVIDERS: ATTEND Surgery
DX: Z12.11 Encounter for screening for malignant neoplasm of colon (principal); D12.5 Benign neoplasm of sigmoid colon; K63.5 Polyp of colon; K62.1 Rectal polyp; K57.30 Diverticulosis of large intestine without perforation or abscess without bleeding; R19.5 Other fecal abnormalities; E78.00 Pure hypercholesterolemia, unspecified; J45.909 Unspecified asthma, uncomplicated; E11.9 Type 2 diabetes mellitus without complications; F17.200 Nicotine dependence, unspecified, uncomplicated; Z88.1 Allergy status to other antibiotic agents; Z88.5 Allergy status to narcotic agent; Z88.2 Allergy status to sulfonamides; Z88.8 Allergy status to other drugs, medicaments and biological substances; Z79.82 Long term (current) use of aspirin; Z79.84 Long term (current) use of oral hypoglycemic drugs; Z79.899 Other long term (current) drug therapy
CPT/HCPCS: 45380; 45385; J1920; J2704; J7120; 00811